=== PATIENT | male | born 1955 | race Caucasian/White ===

== ENCOUNTER 2020-02-04 09:22 | Outpatient (REF) | payer OTHER, SELFPAY ==
--- NOTE | 2020-02-04 | US_ITS ---
EXAMINATION: US ABDOMEN LIMITED CLINICAL INFORMATION: Cirrhosis. HCC screening. COMPARISON: Ultrasound abdomen complete with elastography 08/09/2019. Limited abdominal ultrasound 06/23/2018. CT abdomen and pelvis 09/08/2017. TECHNIQUE: Real-time imaging of the right upper quadrant abdominal viscera. FINDINGS: PANCREAS: Normal. LIVER: The liver is normal in size. The liver contour is slightly irregular questionable for mild cirrhosis. Liver echotexture is slightly increased. No focal hepatic lesion. There is no intrahepatic biliary duct dilatation seen. GALLBLADDER: Normal. The gallbladder is physiologically distended without evidence of stones, sludge, polyps, wall thickening or pericholecystic fluid. COMMON BILE DUCT: Normal in caliber measuring 0.3 cm in diameter. RIGHT KIDNEY: Normal. No hydronephrosis. No renal calculi or focal parenchymal lesions. The kidney measures 10.1 cm in maximum dimension. FREE FLUID: None. IMPRESSION: Echogenic liver with mild cirrhotic changes. No focal liver lesion seen.
== END 2020-02-04 09:23 | disposition home or self-care (01) ==
LOC: HO.US 09:22
PROVIDERS: Visit Provider Physician Assistant
DX: K21.9 Gastro-esophageal reflux disease without esophagitis (principal); K74.60 Unspecified cirrhosis of liver
CPT/HCPCS: 76705

== ENCOUNTER → 2020-02-05 09:36 | Outpatient (BNVA) | payer OTHER, SELFPAY | PROVIDERS: Visit Provider Internal Medicine Gastroenterology | DX: K74.69 Other cirrhosis of liver (principal); R42 Dizziness and giddiness | CPT/HCPCS: 99213 ==

== ENCOUNTER 2020-02-13 12:17 | Outpatient (REF) | payer OTHER, SELFPAY ==
[2020-02-13 13:15] LABS: MANUAL DIFF FLAG NO
[2020-02-13 13:18] LABS: Basophils Percent Auto 0.3 % (0-2); Eosinophils Absolute Auto 0.2 X10*3/uL (0.0-0.4); Eosinophils Percent Auto 1.7 % (0-4); Hematocrit 42.9 % (42-52); Hemoglobin 14.8 g/dl (14.0-18.0); Imm Gran Abs Auto 0.02 X10*3/uL (0.00-0.03); Imm Gran Pct Auto 0.2 % (0.0-0.4); Lymphocytes Absolute Auto 1.6 X10*3/uL (1.2-4.9); Lymphocytes Percent Auto 16.1 % (20-40); Mean Corpuscular HGB Conc 34.5 g/dl (31.0-36.0); Mean Corpuscular Hemoglobin 31.2 pg (27.0-33.0); Mean Corpuscular Volume 90.5 fL (80-98); Mean Platelet Volume 12.3 fL (9.4-12.4); Monocytes Absolute Auto 0.7 X10*3/uL (0.1-1.2); Monocytes Percent Auto 7.7 % (2-11); Neutrophils Absolute Auto 7.1 X10*3/uL (2.0-8.3); Platelet Count 102 X10*3/uL (160-400); Red Blood Count 4.74 X10*6/uL (4.60-5.80); Red Cell Distribution Width 12.5 % (11.0-16.0); White Blood Count 9.6 X10*3/uL (4.8-10.8)
[2020-02-13 13:23] LABS: INTERNATIONAL NORM RATIO 1.1 (0.9-1.1)
[2020-02-13 13:47] LABS: Alanine Aminotransferase 23 U/L (0-40); Albumin Level 4.4 g/dL (3.5-5.0); Alkaline Phosphatase 72 U/L (39-117); Anion Gap 14 (12-20); Aspartate Amino Transferase 26 U/L (5-37); Bilirubin Total 1.2 mg/dL (0.0-1.0); Blood Urea Nitrogen 12 mg/dL (9-16); Calcium 8.9 mg/dL (8.4-10.2); Carbon Dioxide 24 mmol/L (22-29); Chloride 106 mmol/L (96-108); Estimated Glomerular Filt Rate > 60; Glucose Random 150 mg/dL (60-115); Potassium 3.9 mmol/l (3.3-5.1); Sodium 140 mmol/L (135-145); Total Protein 7.5 g/dL (6.5-8.0)
[2020-02-13 14:08] LABS: Vitamin D 25-OH Total 23.9 ng/mL (>30)
[2020-02-13 14:20] LABS: Syphilis Screen Nonreactive (Nonreactive)
[2020-02-13 14:31] LABS: Folate 19.2 ng/mL (> or = 4.0); Vitamin B12 507 pg/mL (200-900)
[2020-02-14 09:19] LABS: HIV AB/AG Nonreactive (Nonreactive); HIV Num 1 0.06 S/CO (0.00-0.99)
[2020-02-16 15:27] LABS: Nicotinamide <20 ng/mL; Vit B3 - Nicotinic Acid 28 ng/mL
[2020-02-17 14:21] LABS: Vitamin B6 15.6 ng/mL (2.1-21.7)
[2020-02-18 01:46] LABS: Zinc 77 mcg/dL (60-130)
[2020-02-18 13:16] LABS: Vitamin B5 (Pantothenic Acid) 91 ng/mL (<275)
[2020-02-18 14:51] LABS: Prot Elec - Albumin 4.2 g/dL (3.8-4.8); Prot Elec - Alpha1 0.3 g/dL (0.2-0.3); Prot Elec - Alpha2 0.8 g/dL (0.5-0.9); Prot Elec - Beta 1 0.5 g/dL (0.4-0.6); Prot Elec - Beta 2 0.4 g/dL (0.2-0.5); Prot Elec - Gamma 1.2 g/dL (0.8-1.7); Prot Elec - Total Protein 7.4 g/dL (6.1-8.1); Venous Lead 1 mcg/dL (<5)
[2020-02-19 13:37] LABS: PEU-Protein Creat Ratio Rand 0.076 (0.022-0.128); PEU-Rand. Prot/Creat Ratio 76 mg/g creat (22-128); PEU-Random Ur. Gamma Globulin 0 %; PEU-Random Urine A1 Globulin 0 %; PEU-Random Urine A2 Globulin 0 %; PEU-Random Urine Albumin 100 %; PEU-Random Urine Beta Globulin 0 %; PEU-Random Urine Creatinine 185 mg/dL (20-320); PEU-Random Urine Protein 14 mg/dL (5-25)
[2020-02-19 18:16] LABS: Alpha-Tocopherol 23.6 mg/L (5.7-19.9); Beta-Gamma Tocopherol <1.0 mg/L (<=4.3); Vitamin A 54 mcg/dL (38-98)
== END 2020-02-13 12:18 | disposition home or self-care (01) ==
LOC: HO.LAB 12:17
PROVIDERS: Visit Provider Internal Medicine Gastroenterology
DX: Z11.4 Encounter for screening for human immunodeficiency virus [HIV] (principal); Z11.3 Encounter for screening for infections with a predominantly sexual mode of transmission; R42 Dizziness and giddiness; K74.69 Other cirrhosis of liver
CPT/HCPCS: 36415; 80053; 82180; 82306; 82550; 82570; 82607; 82746; 83655; 84155; 84156; 84165; 84166; 84207; 84446; 84590; 84591; 84630; 85025; 85610; 86780; 87389

== ENCOUNTER → 2020-02-15 11:32 | Outpatient (BNVA) | payer OTHER, SELFPAY | PROVIDERS: PCP Family Medicine; Referring Provider Family Medicine; Visit Provider Internal Medicine Gastroenterology | DX: K74.69 Other cirrhosis of liver (principal); Z86.19 Personal history of other infectious and parasitic diseases | CPT/HCPCS: 99212 ==

== ENCOUNTER → 2020-03-07 08:38 | Outpatient (BNVA) | payer OTHER, SELFPAY | PROVIDERS: PCP Family Medicine; Referring Provider Family Medicine; Visit Provider Internal Medicine Gastroenterology | DX: K74.69 Other cirrhosis of liver (principal); Z86.19 Personal history of other infectious and parasitic diseases | CPT/HCPCS: Q3014 ==

== ENCOUNTER → 2020-05-27 12:20 | Outpatient (BNVA) | payer OTHER, SELFPAY | PROVIDERS: PCP Family Medicine; Visit Provider Internal Medicine Gastroenterology | DX: Z76.89 Persons encountering health services in other specified circumstances (principal) | CPT/HCPCS: Q3014 ==

== ENCOUNTER 2020-07-17 07:27 | Day surgery (SDC) | payer OTHER, SELFPAY ==
--- NOTE | 2020-07-16 09:48 | P.CONAN_ITS ---
Documented by User: Cara Cano 07/16/20 09:49 HPI - Anesthesia Eval Consult details Narrative: 65yo M for Colonoscopy PMFSH Active Problems Active Problems: All Active Problems (Updated 04/23/20 @ 15:33 by Leslie Carrillo) Cirrhosis of liver (Acute) Dizziness (Acute) Colon cancer screening (Acute) Past Medical History Medical History Cough Diabetes mellitus GERD (gastroesophageal reflux disease) History of back pain History of depression History of edema History of ETOH abuse Hx of hepatitis Hx of intravenous drug use in remission Leg cramps Osteoarthritis Polyneuropathy Smoker Family History Family History Father No problems noted. Mother No problems noted. Son No problems noted. Daughter No problems noted. Surgical History Surgical History History of colonoscopy History of cystoscopy History of esophagogastroduodenoscopy (EGD) Social History Social History (Updated 07/17/20 @ 08:11 by Emilee Winter) Household Members: None Housing: Apartment Alcohol intake: current Alcohol intake frequency: holidays/special occasions only Smoking Status: Current every day smoker Tobacco Type: Cigarette Packs Per Day: 1 Cigarettes Per Day: 20.0 Years Smoked: 54 Smoked in Last 30 Days: Yes Second Hand Smoke Exposure: No Use of substances other than those prescribed or required for medical reasons: Yes Substance Use Type: Marijuana Last Used Substance Other:: Yesterday Have you been hit, kicked, punched, or otherwise hurt by someone within the past year? If so, by whom?: No Advance Directives: No Advance Directives Information Provided: Yes service: No Current occupational status: disabled Meds Allergies Allergy/AdvReac Type Severity Reaction Status Date / Time No Known Allergies Allergy Verified 05/27/20 12:21 Home Medications Medication Instructions Recorded Confirmed Last Taken Type albuterol sulfate [Ventolin HFA] 2 puff INHALATION Q4-6H PRN 04/23/20 04/23/20 Unknown History cyclobenzaprine 10 mg PO TID PRN 04/23/20 04/23/20 Unknown History docusate sodium 100 mg PO DAILY 04/23/20 04/23/20 Unknown History fluticasone propionate 1 - 2 spray INTRANASAL DAILY PRN 04/23/20 04/23/20 Unknown History furosemide 1 tab PO QAM 04/23/20 04/23/20 Unknown History glipizide 0.5 tab PO QAM 04/23/20 04/23/20 Unknown History melatonin 1 tab PO BEDTIME 04/23/20 04/23/20 Unknown History pantoprazole 1 tab PO BEDTIME 04/23/20 04/23/20 Unknown History prazosin 1 cap PO BEDTIME 04/23/20 04/23/20 Unknown History sertraline 1.5 tab PO QAM 04/23/20 04/23/20 Unknown History spironolactone 1 tab PO QAM 04/23/20 04/23/20 Unknown History sucralfate [Carafate] 10 ml PO BID 04/23/20 04/23/20 Unknown History tamsulosin 1 cap PO BEDTIME 04/23/20 04/23/20 Unknown History trazodone 1 tab PO BEDTIME PRN 04/23/20 04/23/20 Unknown History Exam Exam Date and Time: July 16, 2020 0948 Pertinent Lab Results Pertinent Lab Results: Laboratory Tests 02/13/20 02/13/20 12:40 12:40 WBC 9.6 Hgb 14.8 Hct 42.9 Plt Count 102 L Sodium 140 Potassium 3.9 Chloride 106 Carbon Dioxide 24 BUN 12 Creatinine 1.10 Assessment and Plan Assessment Anesthesia Assessment: Chart Reviewed Documented by User: Emilee Winter 07/17/20 08:34 [facility] Past Medical History Medical History Cough Diabetes mellitus GERD (gastroesophageal reflux disease) History of back pain History of depression History of edema History of ETOH abuse Hx of hepatitis Hx of intravenous drug use in remission Leg cramps Osteoarthritis Polyneuropathy Smoker Family History Family History Father No problems noted. Mother No problems noted. Son No problems noted. Daughter No problems noted. Family history of problems with anesthesia: No Surgical History Surgical History History of colonoscopy History of cystoscopy History of esophagogastroduodenoscopy (EGD) History of Problems with Anesthesia: No Social History Social History (Updated 07/17/20 @ 08:11 by Emilee Winter) Household Members: None Housing: Apartment Alcohol intake: current Alcohol intake frequency: holidays/special occasions only Smoking Status: Current every day smoker Tobacco Type: Cigarette Packs Per Day: 1 Cigarettes Per Day: 20.0 Years Smoked: 54 Smoked in Last 30 Days: Yes Second Hand Smoke Exposure: No Use of substances other than those prescribed or required for medical reasons: Yes Substance Use Type: Marijuana Last Used Substance Other:: Yesterday Have you been hit, kicked, punched, or otherwise hurt by someone within the past year? If so, by whom?: No Advance Directives: No Advance Directives Information Provided: Yes service: No Current occupational status: disabled Meds Allergies Allergy/AdvReac Type Severity Reaction Status Date / Time No Known Allergies Allergy Verified 05/27/20 12:21 Home Medications Medication Instructions Recorded Confirmed Last Taken Type albuterol sulfate [Ventolin HFA] 2 puff INHALATION Q4-6H PRN 04/23/20 04/23/20 Unknown History cyclobenzaprine 10 mg PO TID PRN 04/23/20 04/23/20 Unknown History docusate sodium 100 mg PO DAILY 04/23/20 04/23/20 Unknown History fluticasone propionate 1 - 2 spray INTRANASAL DAILY PRN 04/23/20 04/23/20 Unknown History furosemide 1 tab PO QAM 04/23/20 04/23/20 Unknown History glipizide 0.5 tab PO QAM 04/23/20 04/23/20 Unknown History melatonin 1 tab PO BEDTIME 04/23/20 04/23/20 Unknown History pantoprazole 1 tab PO BEDTIME 04/23/20 04/23/20 Unknown History prazosin 1 cap PO BEDTIME 04/23/20 04/23/20 Unknown History sertraline 1.5 tab PO QAM 04/23/20 04/23/20 Unknown History spironolactone 1 tab PO QAM 04/23/20 04/23/20 Unknown History sucralfate [Carafate] 10 ml PO BID 04/23/20 04/23/20 Unknown History tamsulosin 1 cap PO BEDTIME 04/23/20 04/23/20 Unknown History trazodone 1 tab PO BEDTIME PRN 04/23/20 04/23/20 Unknown History Exam Height,Weight and Vital Signs: Vital Signs Temp Pulse Resp BP Pulse Ox 07/17/20 07:46 98.8 F 63 20 157/74 H 97 Pertinent Lab Results Pertinent Lab Results: Lab Results 07/17/20 Range/Units 07:43 POC Glucose 142 H (60-115) mg/dL Airway Mallampati Class: II TM Dist: >3cm Neck ROM: Full Denture: Upper and Lower Heart: RRR Lungs: CTAB Assessment and Plan Assessment Anesthesia Assessment: Anesthesia Plan Discussed and Chart Reviewed Final Anesthetic Review NPO: Yes ASA Class: III Final Preanesthetic Review: No Changes in Pt Med Stat, Meds/Allgs Chart Reviewed, Consent Obtained/Reviewed and Anes Risks/Benef Reviewed Patient Risk: Intermediate Procedure Risk: Low Assessment/Block/Sedation in SS: Assess/Block/Sedation-SS Anesthetic Plan Anesthetic Plan: MAC: Disposition: Standard PACU
--- NOTE | 2020-07-17 07:36 | MHC.SHP ---
Pre-Procedural Eval Section B Chief Complaint: screening Relevant Family History (Specify if Yes): No Relevant Social History: Tobacco Use Present Medications: see Short Stay Collaborative assessment Medical History: Significant History (Cough Diabetes mellitus GERD (gastroesophageal reflux disease) History of back pain History of depression History of edema History of ETOH abuse Hx of hepatitis Hx of intravenous drug use in remission Leg cramps Osteoarthritis Polyneuropathy Smoker) History of Previous Operations: Relevant previous surgery/procedure and date(s) (egd,colonoscopy) Allergies: Allergies Allergy/AdvReac Type Severity Reaction Status Date / Time No Known Allergies Allergy Verified 05/27/20 12:21 Review of Systems Sugical H&P ROS: Negative: Constitution, Cardiovascular, Respiratory, Neurological, Psychiatric, Hem-Onc, Allergic/Immunologic, Gastrointestinal, Genitourinary, Musculoskeletal, Integumentary, Endocrine and Eyes/Ears/Nose/Throat Exam Surgical H&P Exam: Normal: HEENT, Normal: Heart, Normal: Lungs, Normal: Extremities, Normal: Abdomen, Normal: Skin and Normal: Neurological Plan Diagnosis/Plan: Unchanged I have reviewed the history and physical and performed a pertinent physical examination on my patient. No changes have occurred unless specified.
[2020-07-17 07:46] VITALS: BP 157/74; PULSE 63; RESP 20; TEMP 37.1; O2SAT 97
[2020-07-17 07:47] LABS: Glucose, Whole Blood 142 mg/dL (60-115)
[2020-07-17 07:54] VITALS: BMI 36.6
[2020-07-17] MEDS: Lactated Ringers 1,000 ML 100 ML IVCONT (08:02)
--- NOTE | 2020-07-17 09:23 | PM.OP ---
Brief Operative Note Date of Service: 07/17/20 Pre-op diagnosis: screening colo Post-op diagnosis: same Procedure: see op note Surgeon: Arsenio Riddle MD Anesthesia: MAC Estimated blood loss (mL): 0 Condition: stable Disposition: PACU
--- NOTE | 2020-07-17 09:24 | W.PM.OPN ---
Operative Note Operative Note Date of Service: 07/17/20 Narrative: Operative Information Procedure Description: Colonoscopy COLONOSCOPY Instrument: Olympus variable stiffness pediatric scope 190L Colonoscopy Monitoring: Vital signs and clinical assessment, continuous EKG monitoring, Pulse oximetry, Carbon Dioxide monitoring and blood pressure monitoring were done throughout the procedure. Colon withdrawal time was 18 minutes. Procedure: The patient was placed in the left lateral decubitis position and pre-procedure medications were administered. After a digital rectal examination of the ano-rectum, the video colonoscope was inserted into the rectum and advanced through the colon to the cecum/TI. The colonoscope was slowly withdrawn in a retrograde panoramic fashion and the colon mucosa was carefully examined including a retroflexed view of the rectum. Findings and interventions are described below. Procedure Difficulty: moderate, pressure applied to reach cecum Findings: Terminal Ileum-normal Cecum:normal Ascending Colon: normal Transverse Colon -normal Descending Colon:normal Sigmoid Colon: normal Rectum: Retroflexion with moderate sized slightly inflammed internal hemorrhoids, grade II, there were several translucent, pale appearing sessile polyps, measuring 10-12 mm, these appeared to be hyperplastic but removed with cold snare due to size. Anorectum - internal hemorrhoids seen at anal verge Colon preparation: [place] Bowel Preparation Scale Right colon; 3 Transverse colon: 2 Left colon; 1 (0 = Unprepared colon segment with mucosa not seen due to solid stool that cannot be cleared. 1 = Portion of mucosa of the colon segment seen, but other areas of the colon segment not well seen due to staining, residual stool and/or opaque liquid. 2 = Minor amount of residual staining, small fragments of stool and/or opaque liquid, but mucosa of colon segment seen well. 3 = Entire mucosa of colon segment seen well with no residual staining, small fragments of stool or opaque liquid) Impression and Post Procedure Diagnosis: polyps internal hemorrhoids Plan: High fiber diet leaflet Avoid straining at stool, epsom salts and sitz bath, anusol supps or cream as needed Repeat Colonoscopy in 3-4 years due to left sided prep or earlier if clinically indicated Above findings were reviewed with the patient and relevant handouts were provided if indicated.
[2020-07-17 09:27] VITALS: BP 129/74; PULSE 73; RESP 14; TEMP 36.5; O2SAT 95
[2020-07-17 09:42] VITALS: BP 135/70; PULSE 61; RESP 16; O2SAT 95
[2020-07-17 09:50] VITALS: PULSE 64; RESP 16; O2SAT 95
== END 2020-07-17 10:35 | disposition home or self-care (01) ==
PROVIDERS: Visit Provider Internal Medicine Gastroenterology
PROC: 0DJD8ZZ Inspection of Lower Intestinal Tract, Via Natural or Artificial Opening Endoscopic (ICD-10-PCS; CPT 45378; principal; 2020-07-17 08:30)
DX: Z12.11 Encounter for screening for malignant neoplasm of colon (principal); K62.1 Rectal polyp; K64.1 Second degree hemorrhoids; E11.42 Type 2 diabetes mellitus with diabetic polyneuropathy; F17.210 Nicotine dependence, cigarettes, uncomplicated; F19.11 Other psychoactive substance abuse, in remission
CPT/HCPCS: 45385; 82947; 88305

== ENCOUNTER → 2020-09-23 10:39 | Outpatient (BNVA) | payer OTHER, SELFPAY | PROVIDERS: Visit Provider Internal Medicine Gastroenterology | CPT/HCPCS: Q3014 ==

== ENCOUNTER 2020-11-06 13:35 | Outpatient (REF) | payer OTHER, SELFPAY ==
--- NOTE | ~2020-11-06 | US_ITS ---
EXAMINATION: US ABDOMEN LIMITED WITH LIVER ELASTOGRAPHY CLINICAL INFORMATION: Cirrhosis of the liver. COMPARISON: None. TECHNIQUE: Real-time imaging of the abdominal viscera. Noninvasive ultrasound liver fibrosis assessment is performed using Lori ElastPQ point quantification shear wave elastography (pSWE) with a C5-2 MHz transducer. Multiple elastography samples are obtained. FINDINGS: PANCREAS: The pancreas is obscured by overlying gas. LIVER: The liver demonstrates normal size, contour and increased echogenicity. No focal lesion or intrahepatic biliary duct dilatation. The right lobe measures 16.8 cm in length. The left lobe measures 12.1 cm in length. Portal flow is hepatopedal. Shear wave liver elastography median stiffness is 2.17 m/s (reference: normal median stiffness is 1.3 m/s or less). IQR/median stiffness to assess sampling precision is 0.14 (reference: good quality data set is IQR/median stiffness of 0.15 or less). GALLBLADDER: Normal. The gallbladder is physiologically distended without evidence of stones, sludge, polyps, wall thickening or pericholecystic fluid. COMMON BILE DUCT: Normal in caliber measuring 0.3 cm in diameter. RIGHT KIDNEY: Normal. No hydronephrosis. No renal calculi or focal parenchymal lesions. The kidney measures 9.8 cm in maximum dimension. FREE FLUID: None. US/US abdomen west w elastography IMPRESSION: Hepatic steatosis without focal lesion. Pancreas is not visualized. Unremarkable gallbladder, right kidney and CBD. Liver stiffness indicative of CACLD ruled in. Liver elastography: REFERENCE: Society of Radiologists in Ultrasound Liver Stiffness Thresholds (2020): LIVER STIFFNESS THRESHOLDS: *Liver Stiffness equal or less than 1.3 m/s: High probability of being normal. *Liver Stiffness less than 1.7 m/s: In the absence of other known clinical signs, rules out compensated advanced chronic liver disease. *Liver Stiffness 1.7-2.1 m/s: Suggestive of compensated advanced chronic liver disease but need further test for confirmation. *Liver Stiffness over 2.1 m/s: Rules in compensated advanced chronic liver disease. *Liver Stiffness over 2.4 m/s: Suggestive of clinically significant portal hypertension. QUALITY OF DATA SET: *IQR/Median value equal or less than 0.15 implies a quality data set. *IQR/Median value over 0.15 implies a poor quality data set. SIGNIFICANT CHANGE FROM PRIOR EXAM: Significant change if liver stiffness measurement is 10% or greater from prior exam. OTHER CONSIDERATIONS: The stage of liver fibrosis may be overestimated in the setting of acute hepatitis, liver inflammation, elevated liver function tests, hepatic vascular congestion, obstructive cholestasis, non-fasting state, and infiltrative diseases such as amyloidosis and lymphoma. In some patients with NAFLD, the liver stiffness thresholds for compensated advanced chronic liver disease may be lower. In causes other than viral hepatitis and NAFLD, liver stiffness thresholds are not well established.
== END 2020-11-06 13:36 | disposition home or self-care (01) ==
LOC: HO.US 13:35
PROVIDERS: Visit Provider Internal Medicine Gastroenterology
DX: K74.69 Other cirrhosis of liver (principal)
CPT/HCPCS: 76705; 76981

== ENCOUNTER → 2021-03-24 08:45 | Outpatient (BNVA) | payer OTHER, SELFPAY | PROVIDERS: Visit Provider Internal Medicine Gastroenterology | CPT/HCPCS: Q3014 ==

== ENCOUNTER 2021-11-09 10:18 | Outpatient (REF) | payer MEDICARE, MEDICAID, SELFPAY ==
--- NOTE | ~2021-11-09 | US_ITS ---
EXAMINATION: US ABDOMEN COMPLETE CLINICAL INFORMATION: Cirrhosis of liver. COMPARISON: Limited ultrasound abdomen with elastography 11/06/2020. Ultrasound abdomen complete was elastography 08/09/2019. CT abdomen and pelvis 09/08/2017. TECHNIQUE: Real-time imaging of the abdominal viscera. FINDINGS: PANCREAS: Most of the pancreas obscured by overlying gas. ABDOMINAL AORTA: Obscured by overlying gas. INFERIOR VENA CAVA: Visualized portions are normal. LIVER: The liver is normal in size. The liver contour is normal. The liver is heterogeneous and echogenic. No focal hepatic lesion. There is no intrahepatic biliary duct dilatation seen. GALLBLADDER: Gallbladder wall thickness is 0.3 cm The gallbladder is physiologically distended without evidence of stones, sludge, polyps, wall thickening or pericholecystic fluid. COMMON BILE DUCT: Normal in caliber measuring 0.3 cm in diameter. RIGHT KIDNEY: Normal. No hydronephrosis. No renal calculi or focal parenchymal lesions. The kidney measures 9.8 cm in maximum dimension. LEFT KIDNEY: Normal. No hydronephrosis. No renal calculi or focal parenchymal lesions. The kidney measures 10.4 cm in maximum dimension. SPLEEN: Normal. The spleen measures 12.7 cm in maximum dimension. FREE FLUID: None. US/US abdomen complete IMPRESSION: Heterogeneous and echogenic liver unchanged to previous study. No focal lesion seen. Overall no change from previous study except for suboptimal visualization of pancreas, abdominal aorta and IVC.
== END 2021-11-09 10:19 | disposition home or self-care (01) ==
LOC: HO.US 10:18
PROVIDERS: Visit Provider Internal Medicine
DX: K74.60 Unspecified cirrhosis of liver (principal)
CPT/HCPCS: 76700

== ENCOUNTER 2022-06-04 10:33 | Outpatient (REF) | payer MEDICARE, MEDICAID, SELFPAY ==
--- NOTE | ~2022-06-04 | US_ITS ---
EXAMINATION: US ABDOMEN COMPLETE CLINICAL INFORMATION: Cirrhosis. COMPARISON: Ultrasound abdomen complete 11/09/2021. US abdomen complete with liver elastography 11/06/2020. CT abdomen and pelvis with contrast 09/08/2017. TECHNIQUE: Real-time imaging of the abdominal viscera. FINDINGS: PANCREAS: The tail is obscured by overlying bowel gas. Otherwise, visualized portions of the pancreas are within normal limits. ABDOMINAL AORTA: The proximal, mid, and distal segments are normal in caliber. INFERIOR VENA CAVA: Visualized portions are normal. LIVER: The liver is normal in size. The liver contour is normal. Increased parenchymal echogenicity. No focal hepatic lesion. There is no intrahepatic biliary duct dilatation seen. GALLBLADDER: Normal. The gallbladder is physiologically distended without evidence of stones, sludge, polyps, wall thickening or pericholecystic fluid. COMMON BILE DUCT: Normal in caliber measuring 0.3 cm in diameter. RIGHT KIDNEY: Normal. No hydronephrosis. No renal calculi or focal parenchymal lesions. The kidney measures 10.4 cm in maximum dimension. LEFT KIDNEY: Normal. No hydronephrosis. No renal calculi or focal parenchymal lesions. The kidney measures 10.0 cm in maximum dimension. SPLEEN: Normal. The spleen measures 11.1 cm in maximum dimension. FREE FLUID: None. US/US abdomen complete IMPRESSION: Increased liver parenchyma echogenicity which could be associated with hepatic steatosis and/or hepatocellular disease. Early cirrhosis can also manifest similarly.
== END 2022-06-04 10:34 | disposition home or self-care (01) ==
LOC: HO.US 10:33
PROVIDERS: PCP Internal Medicine Geriatric Medicine; Visit Provider Internal Medicine Geriatric Medicine
DX: K74.60 Unspecified cirrhosis of liver (principal)
CPT/HCPCS: 76700

== ENCOUNTER 2022-11-03 10:57 | Outpatient (REF) | payer MEDICARE, MEDICAID, OTHER, SELFPAY ==
[2022-11-04 02:14] LABS: Anion Gap 13 (12-20); Blood Urea Nitrogen 11 mg/dL (9-16); Carbon Dioxide 26 mmol/L (22-29); Chloride 104 mmol/L (96-108); Estimated Glomerular Filt Rate > 60; Glucose Random 281 mg/dL (60-115); Potassium 4.3 mmol/L (3.3-5.1); Sodium 139 mmol/L (135-145)
== END 2022-11-03 10:58 | disposition home or self-care (01) ==
LOC: HO.HHCL 10:57
PROVIDERS: Visit Provider Internal Medicine Geriatric Medicine
DX: E11.65 Type 2 diabetes mellitus with hyperglycemia (principal)
CPT/HCPCS: 36415; 80048

== ENCOUNTER 2023-01-26 08:32 | Outpatient (AMB) | payer MEDICARE, MEDICAID, SELFPAY ==
--- NOTE | 2023-01-26 08:33 | MHC.OFFVIS ---
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 Intake Note: NPV w/ EKG Occupational Therapist Assistants Required: No Accompanied by: Self / Same As Patient Allergies No Known Allergies Allergy (Verified 01/26/23 08:51) Medication List - Last Reconciled 01/26/23 by Montrell Campuzano MD albuterol sulfate 90 mcg/actuation (Ventolin HFA) 2 puffs inhalation Q4-6H PRN atorvastatin 20 mg PO QAM docusate sodium 100 mg PO DAILY doxepin 10 mg PO BEDTIME empagliflozin (Jardiance) 25 mg PO QAM fluticasone propionate 50 mcg/actuation 1 - 2 sprays intranasal DAILY PRN furosemide 40 mg PO QAM gabapentin 100 mg PO BEDTIME glipizide 0.5 tabs PO QAM hydrocortisone 2.5% (Anusol-HC) 1 appl [place] BID-QID PRN melatonin 1 tab PO BEDTIME pantoprazole 1 tab PO BEDTIME peg-electrolyte soln 420 gram (TriLyte With Flavor Packets) 240 mL PO Q10M peg-electrolyte soln 420 gram (TriLyte With Flavor Packets) 240 mL PO Q10M prazosin 1 cap PO BEDTIME sertraline 1.5 tabs PO QAM spironolactone 1 tab PO QAM sucralfate (Carafate) 10 mL PO BID tamsulosin 1 cap PO BEDTIME trazodone 1 tab PO BEDTIME PRN HPI HPI Comments History of Present Illness Details Travis is here for evaluation regarding chest pain. He gets chest pain off and on at different times. May get during rest, exertion and in fact any time. Points to the left chest. Not clear if it is describing angina or something nonspecific. No documented history of coronary artery disease or myocardial infarction or cardiomyopathy. Diabetic. Many comorbidities. Also listed to have history of alcohol excess, cirrhosis. PFSH Medical History Cough Diabetes mellitus GERD (gastroesophageal reflux disease) History of back pain History of depression History of edema History of ETOH abuse Hx of hepatitis Hx of intravenous drug use in remission Leg cramps Osteoarthritis Polyneuropathy Smoker Surgical History History of cystoscopy History of colonoscopy History of esophagogastroduodenoscopy (EGD) Family History Father No problems noted. Mother No problems noted. Son No problems noted. Daughter No problems noted. Social History Household Members: None Housing: Apartment Are you a primary intensive care unit registered nurse to a significant other at home: No Do you presently have visiting nurse or other home services: No Alcohol intake: current Alcohol intake frequency: holidays/special occasions only Cigarette Packs Per Day: 1 Cigarettes Per Day: 20.0 Years Smoked: 54 Second Hand Smoke Exposure: No Substance Use Type: Marijuana service: No Current occupational status: disabled Review of Systems Const Denies chills, Denies daytime sleepiness, Denies fatigue, Denies fever(s), Denies frequent falls, Denies night sweats, Denies snoring, Denies weakness, Denies weight gain and Denies weight loss Eyes Denies loss of vision ENT Denies dizziness and Denies hearing loss Card Denies chest pain, Denies chest pain with activity, Denies syncope, Denies rapid heart rate, Denies edema, Denies claudication, Denies leg edema, Denies lightheadedness, Denies palpitations, Denies dyspnea, Denies dyspnea on exertion and Denies orthopnea Resp Denies cough, Denies excessive phlegm production, Denies dyspnea, Denies dyspnea on exertion, Denies snoring and Denies wheezing GI Denies abdominal pain, Denies hematochezia, Denies change in bowel habits, Denies change in stool character, Denies heartburn, Denies nausea and Denies vomiting Denies hematuria, Denies dysuria and Denies urinary frequency Musc Denies arthralgias, Denies muscle weakness, Denies numbness and Denies tingling Skin/Breast Denies nail changes and Denies rash Neuro Denies Abnormal speech present, Denies dizziness, Denies syncope, Denies frequent falls, Denies loss of vision, Denies memory loss, Denies numbness, Denies tingling and Denies weakness Psych Denies depression and Denies memory loss Endo Denies fatigue and Denies palpitations Aller/Immun Denies wheezing Physical Exam Vital Signs: Last Vital Signs Pulse 79 01/26/23 08:37 BP 136/80 01/26/23 08:37 BMI result Body Mass Index 34.3 Const General: comfortable and no acute distress Orientation/consciousness: patient oriented x3 HEENT Other: Unremarkable Head: Yes normal to inspection Neck Neck: Yes normal visual inspection Chest Chest palpation & inspection: normal inspection of the chest Resp Auscultation: clear to auscultation bilaterally Cardio Palpation: normal PMI Heart sounds: S1 normal heart sound present, S2 normal heart sound present, no gallops, no murmurs and no rubs GI Palpation (GI): Soft to palpation Back/Spine/Pelvis Other: unremarkable Skin General skin exam: no rashes or lesions noted Neuro General: patient oriented x3 Speech: No Abnormal speech present Extrem General: Yes normal to inspection Psych Mental Status: mental status grossly normal Office Procedures EKG Details: EKG with sinus rhythm at 79/Min; no significant ST-T changes and otherwise unremarkable[place] [id number], Complete Assessment & Plan Assessment & Plan (1) Precordial chest pain: Code(s): R07.2 - Precordial pain Plan Difficult to assess even with blower installer. Needs evaluation for obstructive CAD. Will start an echocardiogram and exercise stress perfusion imaging study. He states he can walk on the treadmill. Based on the findings, can plan further care. Orders: Orders NM cardiolite stress test Today R07.2 - Precordial pain CA echo transthoracic complete Today I25.10 - Atherosclerotic heart disease of [place] coronary artery without angina pectoris, R07.2 - Precordial pain CA stress test Today R07.2 - Precordial pain Coding Level of Care Code New Pt Level 4 (41878) Diagnoses Precordial chest pain R07.2 CPT Codes EKG - CPT: [id number], Complete ([id number])
[2023-01-26 08:37] VITALS: BP 136/80; PULSE 79; BMI 34.3
== END 2023-01-26 09:16 | disposition home or self-care (01) ==
PROVIDERS: PCP Internal Medicine Geriatric Medicine; Visit Provider Internal Medicine
DX: R07.2 Precordial pain (principal)
CPT/HCPCS: 93010; 99204

== ENCOUNTER → 2023-01-26 08:32 | Outpatient (BNVA) | payer MEDICARE, MEDICAID, SELFPAY | PROVIDERS: PCP Internal Medicine Geriatric Medicine; Visit Provider Internal Medicine | DX: R07.2 Precordial pain (principal) | CPT/HCPCS: 93005 ==

== ENCOUNTER 2023-07-04 11:49 | Outpatient (REF) | payer MEDICARE, MEDICAID, SELFPAY ==
[2023-07-04 13:14] LABS: MANUAL DIFF FLAG NO
[2023-07-04 13:39] LABS: Basophils Absolute Auto 0.1 X10*3/uL (0.0-0.2); Basophils Percent Auto 0.5 % (0-2); Eosinophils Absolute Auto 0.1 X10*3/uL (0.0-0.4); Eosinophils Percent Auto 1.4 % (0-4); Hemoglobin 16.5 g/dl (14.0-18.0); Imm Gran Abs Auto 0.05 X10*3/uL (0.00-0.03); Imm Gran Pct Auto 0.5 % (0.0-0.4); Lymphocytes Absolute Auto 1.8 X10*3/uL (1.2-4.9); Lymphocytes Percent Auto 17.3 % (20-40); Mean Corpuscular HGB Conc 35.1 g/dl (31.0-36.0); Mean Corpuscular Hemoglobin 30.4 pg (27.0-33.0); Mean Corpuscular Volume 86.7 fL (80.0-98.0); Mean Platelet Volume 12.9 fL (9.4-12.4); Monocytes Absolute Auto 0.8 X10*3/uL (0.1-1.2); Monocytes Percent Auto 8.1 % (2-11); Neutrophils Absolute Auto 7.4 x10*3/uL (2.0-8.3); Neutrophils Percent Auto 72.2 % (45-73); Platelet Count 110 X10*3/uL (160-400); Red Blood Count 5.42 X10*6/uL (4.60-5.80); Red Cell Distribution Width 12.6 % (11.0-16.0); White Blood Count 10.2 X10*3/uL (4.8-10.8)
[2023-07-04 13:55] LABS: Alanine Aminotransferase 24 U/L (0-40); Albumin Level 4.6 g/dL (3.5-5.0); Alkaline Phosphatase 91 U/L (39-117); Anion Gap 17 (12-20); Aspartate Amino Transferase 20 U/L (5-37); Bilirubin Total 0.9 mg/dL (0.0-1.0); Blood Urea Nitrogen 12 mg/dL (9-16); Carbon Dioxide 26 mmol/L (22-29); Chloride 101 mmol/L (96-108); Estimated Glomerular Filt Rate 51; Glucose Random 452 mg/dL (60-115); Potassium 4.8 mmol/L (3.3-5.1); Sodium 139 mmol/L (135-145); Total Protein 8.2 g/dL (6.5-8.0)
[2023-07-04 14:48] LABS: Creatinine Urine 89.68 mg/dL; Microalbum/Creatinine Ratio Ur 22.3 ug/mg cr (<30)
== END 2023-07-04 11:50 | disposition home or self-care (01) ==
LOC: HO.HHCL 11:49
PROVIDERS: Visit Provider Internal Medicine Geriatric Medicine
DX: E11.65 Type 2 diabetes mellitus with hyperglycemia (principal); R03.0 Elevated blood-pressure reading, without diagnosis of hypertension; N47.1 Phimosis
CPT/HCPCS: 36415; 80053; 82043; 82570; 85025

== ENCOUNTER 2023-10-26 14:51 | Emergency (ER) | payer MEDICARE, MEDICAID, SELFPAY ==
--- NOTE | 2023-10-26 | ECG_ITS ---
Test Reason : CHEST PAIN Blood Pressure : / mmHG Vent. Rate : 072 BPM Atrial Rate : 072 BPM P-R Int : 148 ms QRS Dur : 068 ms QT Int : 392 ms P-R-T Axes : 040 002 053 degrees QTc Int : 429 ms Normal sinus rhythm Normal ECG No previous ECGs available Referred By: Generic ED Physician Electronically Signed By:Ronald Hussein
--- NOTE | ~2023-10-26 | XR_ITS ---
EXAMINATION: XR CHEST CLINICAL INFORMATION: Chest pain COMPARISON: Chest radiograph 06/15/2018 TECHNIQUE: Frontal view of the chest was obtained. FINDINGS: No significant abnormality is noted involving the heart, lungs, mediastinum, bony thorax or soft tissues. Again seen are multiple old left-sided rib fractures. XR/XR chest 1V IMPRESSION: Unremarkable examination.
[2023-10-26 15:04] VITALS: BP 114/77; BP 121/75; PULSE 75; PULSE 86; RESP 12; TEMP 37.2; O2SAT 95; O2SAT 98; BMI 36.3
--- NOTE | 2023-10-26 15:21 | ED.CHESTPAIN ---
HPI - Chest Pain General Chief Complaint: Chest Pain Stated Complaint: WEAK,CP, DR VIVAS ASA/NITRO PER EMS Time Seen by Provider: 10/26/23 15:21 History of Present Illness ED Provider: Chetna YANEZ narrative: The patient is a 68-year-old male who says that yesterday evening at around 18:00 he had an episode of chest discomfort that lasted about 20 minutes. Today he went to his primary care doctor's office at the [facility]. He was talking to a nurse about renewing his insulin supply. While he was at the [facility] he again developed chest discomfort. An ambulance was called and he was brought to the hospital. He says that he had some shortness of breath associated with the chest discomfort. He had some nausea last night but not today. No pain or swelling in his legs. His discomfort has since resolved. The patient says that he has had similar episodes of chest discomfort in the past. He is unaware of any history of a heart attack. Related Data Home Medications ?Medication ?Instructions ?Recorded ?Confirmed albuterol sulfate 90 mcg/actuation 2 puff inhalation Q4-6H PRN 04/23/20 01/26/23 aerosol inhaler (Ventolin HFA) Wheezing docusate sodium 100 mg tablet 100 mg PO DAILY 04/23/20 01/26/23 fluticasone propionate 50 1 - 2 spray intranasal DAILY PRN 04/23/20 01/26/23 mcg/actuation nasal Nasal Congestion spray,suspension glipizide 5 mg tablet 0.5 tab PO QAM 04/23/20 01/26/23 melatonin 1 mg tablet 1 tab PO BEDTIME 04/23/20 01/26/23 pantoprazole 40 mg tablet,delayed 1 tab PO BEDTIME 04/23/20 01/26/23 release prazosin 2 mg capsule 1 cap PO BEDTIME nightmares 04/23/20 01/26/23 sertraline 100 mg tablet 1.5 tab PO QAM 04/23/20 01/26/23 spironolactone 50 mg tablet 1 tab PO QAM 04/23/20 01/26/23 sucralfate 100 mg/mL oral 10 ml PO BID 04/23/20 01/26/23 suspension (Carafate) tamsulosin 0.4 mg capsule 1 cap PO BEDTIME 04/23/20 01/26/23 trazodone 150 mg tablet 1 tab PO BEDTIME PRN Sleep 04/23/20 01/26/23 doxepin 10 mg capsule 10 mg PO BEDTIME 03/24/21 01/26/23 atorvastatin 20 mg tablet 20 mg PO QAM 01/26/23 01/26/23 empagliflozin 25 mg tablet 25 mg PO QAM 01/26/23 01/26/23 (Jardiance) furosemide 40 mg tablet 40 mg PO QAM 01/26/23 01/26/23 Previous Rx's ?Medication ?Instructions ?Recorded peg-electrolyte solution 420 gram 240 ml PO Q10M #4,000 mL 03/07/20 oral solution (TriLyte With Flavor Packets) peg-electrolyte solution 420 gram 240 ml PO Q10M #4,000 mL 05/27/20 oral solution (TriLyte With Flavor Packets) hydrocortisone 2.5 % topical cream 1 appl [place] BID-QID PRN hemorrhoids 09/23/20 with perineal applicator #30 grams (Anusol-HC) gabapentin 100 mg capsule 100 mg PO BEDTIME #60 caps 05/23/23 Allergies Allergy/AdvReac Type Severity Reaction Status Date / Time No Known Allergies Allergy Verified 10/26/23 15:06 Review of Systems Review of Systems: Yes all other systems are reviewed and are negative [facility] Past Medical History Medical History Cough Diabetes mellitus GERD (gastroesophageal reflux disease) History of back pain History of depression History of edema History of ETOH abuse Hx of hepatitis Hx of intravenous drug use in remission Leg cramps Osteoarthritis Polyneuropathy Smoker Surgical History History of cystoscopy History of colonoscopy History of esophagogastroduodenoscopy (EGD) Family History Family History Father No problems noted. Mother No problems noted. Son No problems noted. Daughter No problems noted. Social History Social History Household Members: None Housing: Apartment Are you a primary healthcare management to a significant other at home: No Do you presently have visiting nurse or other home services: No Alcohol intake: current Alcohol intake frequency: holidays/special occasions only Cigarette Packs Per Day: 1 Cigarettes Per Day: 20.0 Years Smoked: 54 Second Hand Smoke Exposure: No Substance Use Type: Marijuana Advance Directives: No Advance Directives Information Provided: No Do you have a plan to hurt others: No Plan service: No Current occupational status: disabled Physical Exam Vital Signs: Vital Signs: Last Vital Signs Temp 97.9 F 10/26/23 18:37 Pulse 63 10/26/23 18:37 Resp 16 10/26/23 18:37 BP 109/58 L 10/26/23 18:37 Pulse Ox 97 10/26/23 18:37 O2 Del Method Room Air 10/26/23 18:37 BMI result Body Mass Index 36.3 Const: Other: The patient is awake, alert, pleasant, cooperative. He has a 68-year-old male who does not appear obviously acutely ill. HEENT: Other: Face is symmetrical, mucous membranes moist. Eyes: Other: Pupils are round equal, conjunctivae are clear Neck: Other: No JVD Resp: Effort & Inspection: normal respiratory effort Auscultation: clear to auscultation bilaterally Cardio: Rate: regular rate Rhythm: regular rhythm Heart sounds: S1 normal heart sound present and S2 normal heart sound present GI: Other: Abdomen is soft and nontender Skin: Other: Skin is dry and unremarkable Neuro: Other: The patient is awake and alert. Face is symmetrical. Speech is clear. He moves his extremities symmetrically and seems grossly neurologically intact. Extrem: Other: No pitting edema of the extremities. No calf swelling or tenderness. No asymmetry. Medical Decision Making Medical Decision Making MDM Narrative: The patient is a 68-year-old male who was sent to the emergency room from his PCP's office for evaluation of chest pain. He describes having an episode of chest pain yesterday evening her lasted about 20 minutes. He then had a 2nd episode of chest pain that started when he was at the [facility] today. He had received aspirin and nitroglycerin at the office and his pain had resolved prior to my evaluation. Here his EKG is normal. His troponins are undetectable. His BNP is undetectable. His chest x-ray is unremarkable. My overall impression is that the patient has episodes of pain or probably unlikely to represent an acute coronary syndrome given his negative workup. I think he may be discharged to follow up with his regular doctor. He should return if worse. Lab Data 10/26/23 15:25 10/26/23 15:26 Labs: Lab Results 10/26/23 10/26/23 10/26/23 Range/Units 15:23 15:25 15:26 WBC 5.2 (4.8-10.8) X10*3/uL RBC 4.72 (4.60-5.80) X10*6/uL Hgb 14.8 (14.0-18.0) g/dl Hct 41.0 L (42.0-52.0) % MCV 86.9 (80.0-98.0) fL MCH 31.4 (27.0-33.0) pg MCHC 36.1 H (31.0-36.0) g/dl RDW 12.4 (11.0-16.0) % Plt Count 111 L (160-400) X10*3/uL MPV 11.5 (9.4-12.4) fL Immature Gran % (Auto) 0.2 (0.0-0.4) % Neut % (Auto) 59.6 (45-73) % Lymph % (Auto) 26.0 (20-40) % Hutchinson % (Auto) 12.1 H (2-11) % Eos % (Auto) 1.7 (0-4) % Baso % (Auto) 0.4 (0-2) % Lymph # (Auto) 1.4 (1.2-4.9) X10*3/uL Hutchinson # (Auto) 0.6 (0.1-1.2) X10*3/uL Eos # (Auto) 0.1 (0.0-0.4) X10*3/uL Baso # (Auto) 0.0 (0.0-0.2) X10*3/uL Abs Immat Gran (auto) 0.01 (0.00-0.03) X10*3/uL Absolute Neuts (auto) 3.1 (2.0-8.3) x10*3/uL Absolute Nucleated RBC 0.000 (0.0-0.012) X10*3/uL Nucleated RBC % (auto) 0.0 (0.0-0.2) /100WBC VBG pH (7.32-7.43) VBG pCO2 mmHg VBG pO2 mmHg VBG HCO3 (22-26) mmol/L VBG O2 Saturation % VBG Base Excess mmol/L Sodium 140 (135-145) mmol/L Potassium 4.7 (3.3-5.1) mmol/L Chloride 106 (96-108) mmol/L Carbon Dioxide 27 (22-29) mmol/L Anion Gap 12 (12-20) BUN 11 (9-16) mg/dL Creatinine 1.25 (0.5-1.4) mg/dL Estim Creat Clear Calc 63.2 Estimated GFR 57 Random Glucose 218 H (60-115) mg/dL Calcium 9.4 (8.4-10.2) mg/dL Magnesium 2.1 (1.6-2.6) mg/dL Total Bilirubin 0.7 (0.0-1.0) mg/dL Direct Bilirubin 0.3 (0.0-0.5) mg/dL AST 31 (5-37) U/L ALT 29 (0-40) U/L Alkaline Phosphatase 67 (39-117) U/L Troponin I High Sens < 2.7 (<3.5-35.0) ng/L B-Natriuretic Peptide < 10 (<100) pg/mL Total Protein 7.3 (6.5-8.0) g/dL Albumin 4.2 (3.5-5.0) g/dL Lipase 17 (8-78) U/L Urine Color Urine Appearance Urine pH (5.0-9.0) Ur Specific Huxford (1.005-1.025) Urine Protein (Neg-Trace) mg/dL Urine Glucose (UA) (Negative) mg/dL Urine Ketones (Negative) mg/dL Urine Blood (Negative) Urine Nitrite (Negative) Ur Leukocyte Esterase (Negative) Urine RBC (0-2) /HPF Urine WBC (0-5) /HPF Ur Squamous Epith Cells (0-2) /HPF Urine Bacteria (None Seen) Hyaline Casts (0-2) /LPF 10/26/23 10/26/23 10/26/23 Range/Units 15:29 17:12 17:13 WBC (4.8-10.8) X10*3/uL RBC (4.60-5.80) X10*6/uL Hgb (14.0-18.0) g/dl Hct (42.0-52.0) % MCV (80.0-98.0) fL MCH (27.0-33.0) pg MCHC (31.0-36.0) g/dl RDW (11.0-16.0) % Plt Count (160-400) X10*3/uL MPV (9.4-12.4) fL Immature Gran % (Auto) (0.0-0.4) % Neut % (Auto) (45-73) % Lymph % (Auto) (20-40) % Hutchinson % (Auto) (2-11) % Eos % (Auto) (0-4) % Baso % (Auto) (0-2) % Lymph # (Auto) (1.2-4.9) X10*3/uL Hutchinson # (Auto) (0.1-1.2) X10*3/uL Eos # (Auto) (0.0-0.4) X10*3/uL Baso # (Auto) (0.0-0.2) X10*3/uL Abs Immat Gran (auto) (0.00-0.03) X10*3/uL Absolute Neuts (auto) (2.0-8.3) x10*3/uL Absolute Nucleated RBC (0.0-0.012) X10*3/uL Nucleated RBC % (auto) (0.0-0.2) /100WBC VBG pH 7.50 H (7.32-7.43) VBG pCO2 30 mmHg VBG pO2 53 mmHg VBG HCO3 23 (22-26) mmol/L VBG O2 Saturation 84.0 % VBG Base Excess 1.8 mmol/L Sodium (135-145) mmol/L Potassium (3.3-5.1) mmol/L Chloride (96-108) mmol/L Carbon Dioxide (22-29) mmol/L Anion Gap (12-20) BUN (9-16) mg/dL Creatinine (0.5-1.4) mg/dL Estim Creat Clear Calc Estimated GFR Random Glucose (60-115) mg/dL Calcium (8.4-10.2) mg/dL Magnesium (1.6-2.6) mg/dL Total Bilirubin (0.0-1.0) mg/dL Direct Bilirubin (0.0-0.5) mg/dL AST (5-37) U/L ALT (0-40) U/L Alkaline Phosphatase (39-117) U/L Troponin I High Sens < 2.7 (<3.5-35.0) ng/L B-Natriuretic Peptide (<100) pg/mL Total Protein (6.5-8.0) g/dL Albumin (3.5-5.0) g/dL Lipase (8-78) U/L Urine Color Dark Yellow Urine Appearance Clear Urine pH 5.5 (5.0-9.0) Ur Specific Huxford >= 1.030 H (1.005-1.025) Urine Protein 30 (1+) H (Neg-Trace) mg/dL Urine Glucose (UA) Negative (Negative) mg/dL Urine Ketones 15 (Negative) mg/dL Urine Blood Negative (Negative) Urine Nitrite Negative (Negative) Ur Leukocyte Esterase Trace H (Negative) Urine RBC 0-2 (0-2) /HPF Urine WBC 0-5 (0-5) /HPF Ur Squamous Epith Cells 0-2 (0-2) /HPF Urine Bacteria None Seen (None Seen) Hyaline Casts 0-2 (0-2) /LPF Independent Interpretation I performed an independent interpretation of an: EKG Interpretation: EKG at 15 12 shows normal sinus rhythm at 72 beats per minute. No definite acute findings. No old EKGs available for comparison. Discharge Plan Discharge Clinical Impression: Chest pain Patient Disposition: Home, Self-Care Additional Instructions: Your testing in the emergency room today is reassuring. There is no sign of a heart attack. Please continue your regular medications. Please continue to work with your primary care doctor at the [facility]. Return to the emergency room if you feel significantly worse at any time. Prescriptions: No Action gabapentin 100 mg capsule 100 mg PO BEDTIME Qty: 60 4RF sucralfate [Carafate] 100 mg/mL suspension 10 ml PO BID sertraline 100 mg tablet 1.5 tab PO QAM tamsulosin 0.4 mg capsule 1 cap PO BEDTIME pantoprazole 40 mg tablet,delayed release (DR/EC) 1 tab PO BEDTIME trazodone 150 mg tablet 1 tab PO BEDTIME PRN (Reason: Sleep) albuterol sulfate [Ventolin HFA] 90 mcg/actuation Hfa Aerosol Inhaler 2 puff INHALATION Q4-6H PRN (Reason: Wheezing) fluticasone propionate 50 mcg/actuation spray,suspension 1 - 2 spray intranasal DAILY PRN (Reason: Nasal Congestion) docusate sodium 100 mg Tablet 100 mg PO DAILY glipizide 5 mg tablet 0.5 tab PO QAM prazosin 2 mg capsule 1 cap PO BEDTIME spironolactone 50 mg tablet 1 tab PO QAM melatonin 1 mg tablet 1 tab PO BEDTIME peg-electrolyte soln [TriLyte With Flavor Packets] 420 gram recon soln 240 ml PO Q10M Qty: 4000 0RF Rx Instructions: until fecal effluent is clear; do not exceed a total volume of 2,000 mL peg-electrolyte soln [TriLyte With Flavor Packets] 420 gram recon soln 240 ml PO Q10M Qty: 4000 0RF Rx Instructions: until fecal effluent is clear; do not exceed a total volume of 2,000 mL hydrocortisone [Anusol-HC] 2.5 % cream with perineal applicator 1 appl [place] BID-QID PRN (Reason: hemorrhoids) Qty: 30 0RF doxepin 10 mg capsule 10 mg PO BEDTIME Jardiance 25 mg tablet 25 mg PO QAM atorvastatin 20 mg tablet 20 mg PO QAM furosemide 40 mg tablet 40 mg PO QAM Referrals: Name,MD Joe [Primary Care Provider] - (Chest pain) Interventions: ED Discharge Assessment Last Done: 10/26/23 18:37 Discharge Date/Time: 10/26/23 18:38 Print Language: Portuguese
[2023-10-26 15:31] LABS: MANUAL DIFF FLAG NO
[2023-10-26 15:34] LABS: Basophils Percent Auto 0.4 % (0-2); Eosinophils Absolute Auto 0.1 X10*3/uL (0.0-0.4); Eosinophils Percent Auto 1.7 % (0-4); Hemoglobin 14.8 g/dl (14.0-18.0); Imm Gran Abs Auto 0.01 X10*3/uL (0.00-0.03); Imm Gran Pct Auto 0.2 % (0.0-0.4); Lymphocytes Absolute Auto 1.4 X10*3/uL (1.2-4.9); Mean Corpuscular HGB Conc 36.1 g/dl (31.0-36.0); Mean Corpuscular Hemoglobin 31.4 pg (27.0-33.0); Mean Corpuscular Volume 86.9 fL (80.0-98.0); Mean Platelet Volume 11.5 fL (9.4-12.4); Monocytes Absolute Auto 0.6 X10*3/uL (0.1-1.2); Monocytes Percent Auto 12.1 % (2-11); Neutrophils Absolute Auto 3.1 x10*3/uL (2.0-8.3); Neutrophils Percent Auto 59.6 % (45-73); Platelet Count 111 X10*3/uL (160-400); Red Blood Count 4.72 X10*6/uL (4.60-5.80); Red Cell Distribution Width 12.4 % (11.0-16.0); White Blood Count 5.2 X10*3/uL (4.8-10.8)
[2023-10-26 15:35] LABS: Venous Blood Gas Refer to POC result
[2023-10-26 15:36] LABS: VBG Base Excess 1.8 mmol/L; VBG HCO3 23 mmol/L (22-26); VBG pCO2 30 mmHg; VBG pO2 53 mmHg
[2023-10-26 15:47] VITALS: PULSE 71
[2023-10-26 15:53] LABS: B Type Natriuretic Peptide < 10 pg/mL (<100)
[2023-10-26 15:53] LABS: Alanine Aminotransferase 29 U/L (0-40); Albumin Level 4.2 g/dL (3.5-5.0); Alkaline Phosphatase 67 U/L (39-117); Anion Gap 12 (12-20); Aspartate Amino Transferase 31 U/L (5-37); Bilirubin Direct 0.3 mg/dL (0.0-0.5); Bilirubin Total 0.7 mg/dL (0.0-1.0); Blood Urea Nitrogen 11 mg/dL (9-16); Calcium 9.4 mg/dL (8.4-10.2); Carbon Dioxide 27 mmol/L (22-29); Chloride 106 mmol/L (96-108); Creatinine Clr Calc Pharmacy 63.2; Estimated Glomerular Filt Rate 57; Glucose Random 218 mg/dL (60-115); Lipase 17 U/L (8-78); Magnesium 2.1 mg/dL (1.6-2.6); Potassium 4.7 mmol/L (3.3-5.1); Sodium 140 mmol/L (135-145); Total Protein 7.3 g/dL (6.5-8.0)
[2023-10-26 15:56] LABS: Troponin-I High Sensitivity < 2.7 ng/L (<3.5-35.0)
[2023-10-26 16:00] VITALS: BP 114/63; PULSE 66; RESP 17; TEMP 36.8; O2SAT 96
[2023-10-26 17:23] LABS: Appearance Urine Clear; Color Urine Dark Yellow; Glucose Urine UA Negative (Negative); Leukocyte Esterase Urine Trace (Negative); Nitrite Urine Negative (Negative); PH 5.5 (5.0-9.0); Specific Gravity - Urine >= 1.030 (1.005-1.025); UMIC TRIGGER UACC YES; Urine Blood Negative (Negative); Urine Ketones 15 mg/dL (Negative); Urine Protein 30 (1+) mg/dL (Neg-Trace)
[2023-10-26 17:30] LABS: Bacteria Urine None Seen (None Seen); Hyaline Casts Urine 0-2 /LPF (0-2); RBC Urine 0-2 /HPF (0-2); Squamous Epithelial Cell Urine 0-2 /HPF (0-2); WBC Urine 0-5 /HPF (0-5)
[2023-10-26 17:44] LABS: Troponin-I High Sensitivity < 2.7 ng/L (<3.5-35.0)
[2023-10-26 18:00] VITALS: BP 109/58; PULSE 61; RESP 15; TEMP 36.7; O2SAT 96
[2023-10-26 18:37] VITALS: BP 109/58; PULSE 63; RESP 16; TEMP 36.6; O2SAT 97
== END 2023-10-26 18:38 | disposition home or self-care (01) ==
PROVIDERS: Emergency Medicine; Emergency Provider Emergency Medicine; PCP Internal Medicine Geriatric Medicine
DX: R07.89 Other chest pain (principal); R53.1 Weakness; R11.0 Nausea; R06.02 Shortness of breath; F17.210 Nicotine dependence, cigarettes, uncomplicated; Z79.899 Other long term (current) drug therapy
CPT/HCPCS: 36415; 71045; 80048; 80076; 81001; 82803; 83690; 83735; 83880; 84484; 85025; 93005; 99283; 99285

== ENCOUNTER → 2023-10-26 15:12 | Outpatient (BNV) | payer MEDICARE, MEDICAID, SELFPAY | PROVIDERS: Emergency Provider Emergency Medicine; PCP Internal Medicine Geriatric Medicine; Visit Provider Internal Medicine Cardiovascular Disease | DX: R07.9 Chest pain, unspecified (principal) | CPT/HCPCS: 93010 ==

== ENCOUNTER 2023-12-21 14:43 | Outpatient (AMB) | payer MEDICARE, MEDICAID, SELFPAY ==
--- NOTE | 2023-12-21 14:49 | MHC.OFFVIS ---
Intake Visit Reasons: Phimosis of penis/ circumcision consult Intake Note: New Patient presents for initial visit for phimosis and circumcision consult Urology Medications: Tamsulosin Blood Thinner: none Auto Hauler Required: Yes Auto Hauler Name: ROOSEVELT LINNSHAN Accompanied by: Self / Same As Patient Allergies No Known Allergies Allergy (Verified 12/21/23 15:13) Medication List - Last Reconciled 12/21/23 by LIANA Maxwell- albuterol sulfate 90 mcg/actuation (Ventolin HFA) 2 puffs inhalation Q4-6H PRN atorvastatin 20 mg PO QAM docusate sodium 100 mg PO DAILY doxepin 10 mg PO BEDTIME empagliflozin (Jardiance) 25 mg PO QAM fluticasone propionate 50 mcg/actuation 1 - 2 sprays intranasal DAILY PRN furosemide 40 mg PO QAM gabapentin 100 mg PO BEDTIME glipizide 0.5 tabs PO QAM hydrocortisone 2.5% (Anusol-HC) 1 appl [place] BID-QID PRN melatonin 1 tab PO BEDTIME pantoprazole 1 tab PO BEDTIME peg-electrolyte soln 420 gram (TriLyte With Flavor Packets) 240 mL PO Q10M peg-electrolyte soln 420 gram (TriLyte With Flavor Packets) 240 mL PO Q10M prazosin 1 cap PO BEDTIME sertraline 1.5 tabs PO QAM spironolactone 1 tab PO QAM sucralfate (Carafate) 10 mL PO BID tamsulosin 1 cap PO BEDTIME trazodone 1 tab PO BEDTIME PRN HPI Comments Details: Travis is a Sinhala-speaking 68-year-old male patient of Dr. Feliciano. He has a past medical history of diabetes, GERD, polyneuropathy, osteoarthritis, history of IV drug use in remission, depression, ETOH abuse, hepatitis B and C, and nicotine dependence. He presents to the office today as a new patient for recurrent balanitis and is enquiring circumcision. He reports having followed up with his PCP for ongoing issues with redness noted to the penile gland at which time urology referral was made for further assessment evaluation. In assessment of the patient today the penis is uncircumcised upon retraction of of foreskin there is mild irritation noted to the penile gland. Otherwise there is no open areas, lesions, and or drainage noted. He does have a history of diabetes and reports typically A1cs are elevated however in review of patient's chart it does not appear A1c is available for review. We discussed at length importance of managing diabetes for healing process with near future circumcision as well as overall health and well-being. He reports be happy with current voiding parameters on Flomax. He denies any bothersome urinary issues or concerns. In office urinalysis results reviewed with the patient today. He otherwise offers no other issues or concerns at this time. [facility] Medical History Leg cramps GERD (gastroesophageal reflux disease) Polyneuropathy Osteoarthritis Hx of intravenous drug use in remission History of depression Cough History of ETOH abuse Hx of hepatitis History of back pain Diabetes mellitus Smoker History of edema Surgical History History of cystoscopy History of colonoscopy History of esophagogastroduodenoscopy (EGD) Family History Father No problems noted. Mother No problems noted. Son No problems noted. Daughter No problems noted. Social History Household Members: None Housing: Apartment Are you a primary workforce investment act career manager to a significant other at home: No Do you presently have visiting nurse or other home services: No Alcohol intake: current Alcohol intake frequency: holidays/special occasions only Cigarette Packs Per Day: 1 Cigarettes Per Day: 20.0 Years Smoked: 54 Second Hand Smoke Exposure: No Substance Use Type: Marijuana service: No Current occupational status: disabled Review of Systems Const Reports no additional complaints Eyes Reports no additional complaints ENT Reports no additional complaints Card Reports as per HPI Resp Reports no additional complaints GI Reports as per HPI Reports as per HPI Musc Reports as per HPI Neuro Reports as per HPI Psych Reports as per HPI Endo Reports as per HPI Jose/Lymph Reports as per HPI Physical Exam Const General: cooperative, comfortable, no acute distress, well developed, alert and awake Orientation/consciousness: patient oriented x3 Limitations: no limitations HEENT Head: Yes normal to inspection, Yes normocephalic and Yes atraumatic Ears: hearing grossly normal bilaterally Eyes General: appearance normal, both eyes and all related structures Neck Neck: Yes normal visual inspection and Yes trachea midline Chest Chest palpation & inspection: normal inspection of the chest Resp Effort & Inspection: normal respiratory effort and able to speak in complete sentences Cardio Rate: regular rate GI Inspection: Yes normal to inspection General: Yes no CVA tenderness Back/Spine/Pelvis Back: no CVA tenderness Skin General skin exam: no rashes or lesions noted Neuro General: patient oriented x3 Extrem General: Yes normal to inspection Psych Appearance: grossly normal and well kempt Mental Status: mental status grossly normal Speech and movement: Normal speech and movement present and Clear speech present Affect: normal affect Attitude: cooperative Thought process: Normal thought process present Thought content: Normal thought content present Insight: Fair insight present (Psych) Judgement: Fair judgement present (Psych) Results AMB Urinalysis, Automated UA Leukoctes 15 Fermin/uL Last Edit by [employer] on 12/21/23 14:59 UA Nitrite Last Edit by [employer] on 12/21/23 14:59 UA Urobilinogen 0.2 mg/dL Last Edit by [employer] on 12/21/23 14:59 UA Protein 15 mg/dL Last Edit by [employer] on 12/21/23 14:59 UA pH 7.5 Last Edit by [employer] on 12/21/23 14:59 UA Blood 0 Eddie/uL Last Edit by [employer] on 12/21/23 14:59 UA Specific Egan 1.015 Last Edit by [employer] on 12/21/23 14:59 UA Ketone Negative Last Edit by [employer] on 12/21/23 14:59 UA Bilirubin 1 mg/dL Last Edit by [employer] on 12/21/23 14:59 UA Glucose 0 mg/dL Last Edit by [employer] on 12/21/23 14:59 Results Reviewed Results Reviewed: Laboratory Last Values Urine pH (Auto) 7.5 12/21/23 14:53 Specific Egan (Auto) 1.015 12/21/23 14:53 Urine Protein (Auto) 15 mg/dL 12/21/23 14:53 Glucose (UA)(Auto) 0 mg/dL 12/21/23 14:53 Urine Ketones (Auto) Negative 12/21/23 14:53 Urine Blood (Auto) 0 Eddie/uL 12/21/23 14:53 Urine Bilirubin (Auto) 1 mg/dL 12/21/23 14:53 Urine Urobilinogen (Auto) 0.2 mg/dL 12/21/23 14:53 Leukocyte Esterase (Auto) 15 Fermin/uL 12/21/23 14:53 Assessment & Plan Assessment & Plan (1) Balanitis: Code(s): N48.1 - Balanitis Category: Medical (2) Encounter for circumcision: Code(s): Z41.2 - Encounter for routine and ritual male circumcision Category: Medical Plan In office urinalysis results reviewed with the patient today. Discussed at length importance of managing diabetes in relation to circumcision Will obtain A1c Start clotrimazole-betamethasone 1-0.05 % He otherwise denies any bothersome urinary issues or concerns. He reports be happy with current voiding parameters on 0.4 mg of Flomax. Discussed proper care and the area. Discussed correlation of uncontrolled diabetes and balanitis. Follow-up in 3 months with lab to be completed prior; or sooner with any issues, concerns, and or questions. Orders: Orders AMB Urinalysis Automated Today Z13.9 - Encounter for screening, unspecified Hemoglobin A1c Today E11.9 - Type 2 diabetes mellitus without complications Medications: New clotrimazole-betamethasone 1-0.05 % Apply thin coat 2 times per day 1 appl topical BID 4 weeks 45 grams 3RF N48.1 - Balanitis Patient Instructions: The patient had an opportunity to ask questions regarding the treatment plan. All questions were answered. Physical exam, labs, and imaging were discussed and reviewed in detail. As well as risks, benefits, and discussion of treatment choices. No major barriers to understanding were identified. The patient expressed understanding and agreement with the above treatment plan. The patient was made aware they should contact our office by phone for worsening of their current condition, the appearance of new symptoms, or with any questions or concerns. Compliance is encouraged with any medications and follow up testing that is ordered. It is a privilege to be allowed the opportunity to participate in? your urological care.? Again, if you have any questions or concerns If you have any questions or concerns please do not hesitate to contact me. The office is [phone]. This note is constructed using voice recognition software. While every effort has been made to ensure accuracy wellness program manager errors may have been included. Yours sincerely, LIANA Maxwell-REUBEN Coding Level of Care Code New Pt Level 4 (80509) Diagnoses Balanitis N48.1 Encounter for circumcision Z41.2
== END 2023-12-21 15:14 | disposition home or self-care (01) ==
PROVIDERS: PCP Internal Medicine Geriatric Medicine; Visit Provider Nurse Practitioner Family
DX: N48.1 Balanitis (principal); Z41.2 Encounter for routine and ritual male circumcision; Z13.9 Encounter for screening, unspecified
CPT/HCPCS: 99204; 99214

== ENCOUNTER → 2023-12-21 14:43 | Outpatient (BNVA) | payer MEDICARE, MEDICAID, SELFPAY | PROVIDERS: PCP Internal Medicine Geriatric Medicine; Visit Provider Nurse Practitioner Family | DX: N48.1 Balanitis (principal); Z41.2 Encounter for routine and ritual male circumcision | CPT/HCPCS: 81003; 99202 ==

== ENCOUNTER 2024-03-13 14:39 | Outpatient (REF) | payer MEDICARE, MEDICAID, SELFPAY ==
[2024-03-13 16:22] LABS: MANUAL DIFF FLAG NO
[2024-03-13 16:35] LABS: Basophils Absolute Auto 0.1 X10*3/uL (0.0-0.2); Basophils Percent Auto 0.5 % (0-2); Eosinophils Absolute Auto 0.1 X10*3/uL (0.0-0.4); Eosinophils Percent Auto 1.3 % (0-4); Hematocrit 44.7 % (42.0-52.0); Hemoglobin 15.7 g/dl (14.0-18.0); Imm Gran Abs Auto 0.04 X10*3/uL (0.00-0.03); Imm Gran Pct Auto 0.4 % (0.0-0.4); Lymphocytes Absolute Auto 1.9 X10*3/uL (1.2-4.9); Lymphocytes Percent Auto 18.6 % (20-40); Mean Corpuscular HGB Conc 35.1 g/dl (31.0-36.0); Mean Corpuscular Hemoglobin 30.5 pg (27.0-33.0); Mean Corpuscular Volume 86.8 fL (80.0-98.0); Mean Platelet Volume 12.8 fL (9.4-12.4); Monocytes Absolute Auto 0.7 X10*3/uL (0.1-1.2); Monocytes Percent Auto 7.1 % (2-11); Neutrophils Absolute Auto 7.2 x10*3/uL (2.0-8.3); Neutrophils Percent Auto 72.1 % (45-73); Platelet Count 120 X10*3/uL (160-400); Red Blood Count 5.15 X10*6/uL (4.60-5.80); Red Cell Distribution Width 12.4 % (11.0-16.0)
[2024-03-13 16:48] LABS: Alanine Aminotransferase 40 U/L (0-40); Albumin Level 4.6 g/dL (3.5-5.0); Alkaline Phosphatase 76 U/L (39-117); Anion Gap 11 (12-20); Aspartate Amino Transferase 31 U/L (5-37); Bilirubin Direct 0.3 mg/dL (0.0-0.5); Bilirubin Total 0.7 mg/dL (0.0-1.0); Blood Urea Nitrogen 9 mg/dL (9-16); Calcium 9.8 mg/dL (8.4-10.2); Carbon Dioxide 26 mmol/L (22-29); Chloride 104 mmol/L (96-108); Cholesterol 207 mg/dL (<200); Estimated Glomerular Filt Rate 60; Glucose Random 271 mg/dL (60-115); HDL Cholesterol 41 mg/dL (>40); LDL Cholesterol Calculated 122 mg/dL (<100); Potassium 4.3 mmol/L (3.3-5.1); Sodium 137 mmol/L (135-145); Total Protein 7.9 g/dL (6.5-8.0); Triglycerides 224 mg/dL (<150)
[2024-03-13 16:54] LABS: Estimated Average Glucose 237 mg/dL; Hemoglobin A1C 339.7301 umol/L; Hemoglobin A1c % 9.9 % (<6.0); Total Hemoglobin (HGBA1C) 3994.1844 umol/L
== END 2024-03-13 14:40 | disposition home or self-care (01) ==
LOC: HO.HHCL 14:39
PROVIDERS: Internal Medicine Geriatric Medicine; Visit Provider Nurse Practitioner Family
DX: R03.0 Elevated blood-pressure reading, without diagnosis of hypertension (principal); N47.1 Phimosis; K74.60 Unspecified cirrhosis of liver; E11.65 Type 2 diabetes mellitus with hyperglycemia; Z79.4 Long term (current) use of insulin
CPT/HCPCS: 36415; 80053; 80061; 82248; 83036; 85025

== ENCOUNTER 2024-03-20 14:11 | Outpatient (AMB) | payer MEDICARE, MEDICAID, SELFPAY ==
--- NOTE | 2024-03-20 14:22 | A.OFFVIS_ITS ---
Intake Visit Reasons: 3month follow up A/C Intake Note: Patient present today for follow up on phimosis and circumcision consult Urology Medications: Tamsulosin and clotrimazole cream Blood Thinner: none Certified Registered Nurse Practitioner Required: Yes Certified Registered Nurse Practitioner Name: ROOSEVELT ILNNRissaCMChris Accompanied by: Grand Child Allergies No Known Allergies Allergy (Verified 03/20/24 14:56) Medication List - Last Reconciled 03/20/24 by LIANA Maxwell- albuterol sulfate 90 mcg/actuation (Ventolin HFA) 2 puffs inhalation Q4-6H PRN atorvastatin 20 mg PO QAM clotrimazole-betamethasone 1-0.05 % 1 appl topical BID 4 weeks docusate sodium 100 mg PO DAILY doxepin 10 mg PO BEDTIME empagliflozin (Jardiance) 25 mg PO QAM fluticasone propionate 50 mcg/actuation 1 - 2 sprays intranasal DAILY PRN furosemide 40 mg PO QAM gabapentin 100 mg PO BEDTIME glipizide 0.5 tabs PO QAM hydrocortisone 2.5% (Anusol-HC) 1 appl [place] BID-QID PRN melatonin 1 tab PO BEDTIME pantoprazole 1 tab PO BEDTIME peg-electrolyte soln 420 gram (TriLyte With Flavor Packets) 240 mL PO Q10M peg-electrolyte soln 420 gram (TriLyte With Flavor Packets) 240 mL PO Q10M prazosin 1 cap PO BEDTIME sertraline 1.5 tabs PO QAM spironolactone 1 tab PO QAM sucralfate (Carafate) 10 mL PO BID tamsulosin 1 cap PO BEDTIME trazodone 1 tab PO BEDTIME PRN HPI Comments Details: Travis is a Nigerian-speaking 68-year-old male patient of Dr. Feliciano who was accompanied by his granddaughter at today's office visit. He has a past medical history of diabetes, GERD, polyneuropathy, osteoarthritis, history of IV drug use in remission, depression, ETOH abuse, hepatitis B and C, and nicotine dependence. He presents to the office today for follow-up of his balanitis. Of note, patient was seen approximately 3 months ago at which time topical steroid cream was prescribed and recommendations were made for control in diabetes for potential circumcision as patient with recurrent balanitis. A1c results reviewed with the patient today 03/11 9.9. We discussed correlation of uncontrolled diabetes with circumcision and surgical procedure. He is enquiring referral to Gastroenterology to establish care. He otherwise denies any bothersome urinary issues or concerns. He denies urinary urgency, urinary frequency, incontinence, nocturia, hematuria, dysuria, foul smelling urine, changes to urinary stream, flank pain, fever, and or chills. He is happy with his current voiding parameters. In assessment of the patient today the penis is uncircumcised upon retraction of of foreskin there is mild irritation noted to the penile gland. Otherwise there is no open areas, lesions, and or drainage noted. We discussed at length importance of managing diabetes for healing process with near future circumcision as well as overall health and well-being. In office urinalysis results reviewed with the patient today. He otherwise offers no other issues or concerns at this time. [facility] Medical History Leg cramps GERD (gastroesophageal reflux disease) Polyneuropathy Osteoarthritis Hx of intravenous drug use in remission History of depression Cough History of ETOH abuse Hx of hepatitis History of back pain Diabetes mellitus Smoker History of edema Surgical History History of cystoscopy History of colonoscopy History of esophagogastroduodenoscopy (EGD) Family History Father No problems noted. Mother No problems noted. Son No problems noted. Daughter No problems noted. Social History Household Members: None Housing: Apartment Are you a primary post acute care nurse to a significant other at home: No Do you presently have visiting nurse or other home services: No Alcohol intake: current Alcohol intake frequency: holidays/special occasions only Cigarette Packs Per Day: 1 Cigarettes Per Day: 20.0 Years Smoked: 54 Second Hand Smoke Exposure: No Substance Use Type: Marijuana service: No Current occupational status: disabled Review of Systems Const Reports no additional complaints Eyes Reports no additional complaints ENT Reports no additional complaints Card Reports as per HPI Resp Reports no additional complaints GI Reports as per HPI Reports as per HPI Musc Reports as per HPI Neuro Reports as per HPI Psych Reports as per HPI Endo Reports as per HPI Jose/Lymph Reports as per HPI Physical Exam Const General: cooperative, comfortable, no acute distress, well developed, alert and awake Nutritional Appearance: overweight Orientation/consciousness: patient oriented x3 Limitations: no limitations HEENT Head: Yes normal to inspection, Yes normocephalic and Yes atraumatic Ears: hearing grossly normal bilaterally Eyes General: appearance normal, both eyes and all related structures Neck Neck: Yes normal visual inspection and Yes trachea midline Chest Chest palpation & inspection: normal inspection of the chest Resp Effort & Inspection: normal respiratory effort and able to speak in complete sentences Cardio Rate: regular rate GI Inspection: Yes normal to inspection General: Yes no CVA tenderness Back/Spine/Pelvis Back: no CVA tenderness Skin General skin exam: no rashes or lesions noted Neuro General: patient oriented x3 Extrem General: Yes normal to inspection Psych Appearance: grossly normal and well kempt Mental Status: mental status grossly normal Speech and movement: Normal speech and movement present and Clear speech present Affect: normal affect Attitude: cooperative Thought process: Normal thought process present Thought content: Normal thought content present Insight: Fair insight present (Psych) Judgement: Fair judgement present (Psych) Results AMB Urinalysis, Automated UA Leukoctes 0 Fermin/uL Last Edit by [employer] on 03/20/24 15:26 UA Nitrite Last Edit by [employer] on 03/20/24 15:26 UA Urobilinogen 0.2 mg/dL Last Edit by [employer] on 03/20/24 15:26 UA Protein 30 mg/dL Last Edit by [employer] on 03/20/24 15:26 UA pH 6.0 Last Edit by [employer] on 03/20/24 15:26 UA Blood 0 Eddie/uL Last Edit by [employer] on 03/20/24 15:26 UA Specific Boss 1.030 Last Edit by Juliet Wallace on 03/20/24 15:26 UA Ketone Positive Last Edit by Juliet Wallace on 03/20/24 15:26 UA Bilirubin 1 mg/dL Last Edit by Juliet Wallace on 03/20/24 15:26 UA Glucose 500 mg/dL Last Edit by Juliet Wallace on 03/20/24 15:26 Results Reviewed Results Reviewed: Laboratory Last Values Urine pH (Auto) 6.0 03/20/24 14:32 Specific Boss (Auto) 1.030 03/20/24 14:32 Urine Protein (Auto) 30 mg/dL 03/20/24 14:32 Glucose (UA)(Auto) 500 mg/dL 03/20/24 14:32 Urine Ketones (Auto) Positive 03/20/24 14:32 Urine Blood (Auto) 0 Eddie/uL 03/20/24 14:32 Urine Bilirubin (Auto) 1 mg/dL 03/20/24 14:32 Urine Urobilinogen (Auto) 0.2 mg/dL 03/20/24 14:32 Leukocyte Esterase (Auto) 0 Fermin/uL 03/20/24 14:32 Assessment & Plan Assessment & Plan (1) Balanitis: Code(s): N48.1 - Balanitis Category: Medical (2) Encounter for circumcision: Code(s): Z41.2 - Encounter for routine and ritual male circumcision Category: Medical Plan In office urinalysis results reviewed with the patient today. Discussed at length importance of managing diabetes in relation to circumcision Recent A1c results reviewed with the patient today Will obtain A1c in 3 months Continue clotrimazole-betamethasone 1-0.05 % He otherwise denies any bothersome urinary issues or concerns. Discussed proper care and the area. Referral to GI submitted Discussed correlation of uncontrolled diabetes and balanitis. Follow-up in 3-6 months with lab to be completed prior; or sooner with any issues, concerns, and or questions. Orders: Orders AMB Urinalysis Automated Today Z13.9 - Encounter for screening, unspecified Hemoglobin A1c 3 Months E11.9 - Type 2 diabetes mellitus without complications Referrals Gastroenterology Referral Z12.11 - Encounter for screening for malignant neoplasm of colon Patient Instructions: The patient had an opportunity to ask questions regarding the treatment plan. All questions were answered. Physical exam, labs, and imaging were discussed and reviewed in detail. As well as risks, benefits, and discussion of treatment choices. No major barriers to understanding were identified. The patient expressed understanding and agreement with the above treatment plan. The patient was made aware they should contact our office by phone for worsening of their current condition, the appearance of new symptoms, or with any questions or concerns. Compliance is encouraged with any medications and follow up testing that is ordered. It is a privilege to be allowed the opportunity to participate in? your urological care.? Again, if you have any questions or concerns If you have any questions or concerns please do not hesitate to contact me. The office is [phone]. This note is constructed using voice recognition software. While every effort has been made to ensure accuracy box press operator errors may have been included. Yours sincerely, DIVYA Maxwell Coding Level of Care Code Est Pt Level 3 (38647) Diagnoses Balanitis N48.1 Encounter for circumcision Z41.2
== END 2024-03-20 14:56 | disposition home or self-care (01) ==
PROVIDERS: PCP Internal Medicine Geriatric Medicine; Visit Provider Nurse Practitioner Family
DX: N48.1 Balanitis (principal); Z41.2 Encounter for routine and ritual male circumcision; Z13.9 Encounter for screening, unspecified
CPT/HCPCS: 99213

== ENCOUNTER → 2024-03-20 14:11 | Outpatient (BNVA) | payer MEDICARE, MEDICAID, SELFPAY | PROVIDERS: PCP Internal Medicine Geriatric Medicine; Visit Provider Nurse Practitioner Family | DX: N48.1 Balanitis (principal); E11.9 Type 2 diabetes mellitus without complications | CPT/HCPCS: 81003; 99212 ==